=== PATIENT | female | born 2000 | race Two or more races ===

== ENCOUNTER 2021-12-12 07:25 | Outpatient (REF) | payer OTHER, SELFPAY ==
[2021-12-12 11:12] LABS: MANUAL DIFF FLAG NO
[2021-12-12 11:18] LABS: Basophils Percent Auto 0.8 % (0-2); Eosinophils Absolute Auto 0.2 X10*3/uL (0.0-0.4); Eosinophils Percent Auto 4.1 % (0-4); Hematocrit 39.1 % (37.0-47.0); Hemoglobin 12.6 g/dl (12.0-16.0); Imm Gran Abs Auto 0.02 X10*3/uL (0.00-0.03); Imm Gran Pct Auto 0.4 % (0.0-0.4); Mean Corpuscular HGB Conc 32.2 g/dl (31.0-35.0); Mean Corpuscular Hemoglobin 29.2 pg (27.0-33.0); Mean Corpuscular Volume 90.5 fL (80.0-98.0); Mean Platelet Volume 11.2 fL (9.4-12.3); Monocytes Absolute Auto 0.6 X10*3/uL (0.1-1.2); Monocytes Percent Auto 12.6 % (2-11); Neutrophils Percent Auto 41.1 % (45-73); Platelet Count 175 X10*3/uL (160-400); Red Blood Count 4.32 X10*6/uL (4.20-5.50); Red Cell Distribution Width 14.9 % (11.0-16.0); White Blood Count 4.9 X10*3/uL (4.8-10.8)
[2021-12-12 11:52] LABS: TSH reflex Free T4 1.32 uIU/mL (0.32-4.0)
[2021-12-12 11:57] LABS: Alanine Aminotransferase 19 U/L (0-31); Albumin Level 3.9 g/dL (3.5-5.0); Alkaline Phosphatase 76 U/L (39-117); Anion Gap 12 (12-20); Aspartate Amino Transferase 21 U/L (5-31); Bilirubin Total 1.2 mg/dL (0.0-1.0); Blood Urea Nitrogen 9 mg/dL (9-16); Carbon Dioxide 26 mmol/L (22-29); Chloride 106 mmol/L (96-108); Cholesterol 174 mg/dL; Estimated Glomerular Filt Rate > 60; Glucose Fasting 93 mg/dL (60-99); HDL Cholesterol 65 mg/dL; LDL Cholesterol Calculated 100 mg/dl; Potassium 3.8 mmol/L (3.3-5.1); Sodium 140 mmol/L (135-145); Total Protein 6.9 g/dL (6.5-8.0); Triglycerides 47 mg/dL
== END 2021-12-12 07:26 | disposition home or self-care (01) ==
LOC: HO.HMGCLDS 07:25
PROVIDERS: PCP Nurse Practitioner Family; Visit Provider Nurse Practitioner Family
DX: Z00.00 Encounter for general adult medical examination without abnormal findings (principal)
CPT/HCPCS: 36415; 80053; 80061; 84443; 85025

== ENCOUNTER 2022-01-02 10:00 | Outpatient (RCR) | payer OTHER, SELFPAY ==
--- NOTE | 2021-11-22 08:53 | MHC.PT.EP ---
[facility] [place] Office [place] Office [place] Office [address] Naseem Gabriel [address] [phone] F: [phone] F: [phone] F: [phone] F: [phone] Physical Therapy Plan of Care Date of Evaluation: Date of Surgery: Diagnosis: Unspecified L ankle sprain Assessment: Pt is a 21 y/o active female referred to Pt for eval and treat of L ankle sprain who presents with signs and Sx consistent with chronic L ankle sprain with instability resulting in decreased tolerance for jogging, running, marching, performing stairs, standing for increased duration, as well as performing her requiar fitness activities secondary to decreased L ankle strength, L ankle inversion hyper mobility, L ankle dorsiflexion hypomobility, TTP of lateral ankle, decreased balance, and pain with increased weight bearing activities. Pt is deemed an appropriate candidate to receive skilled PT in order to address her physical limitations to improve her functional ability. Frequency and Duration: The patient will be seen 2 x / wk x 5 wks. Short Term Goals: Initiate home program for ankle stability. Improve baseline pain with activity to < 3/10; initial; 5/10. 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 Pt will be able to run/ jog for her work requirements without difficulty; initial: moderate difficulty. Pt will be able to tolerate performing stairs without difficulty; initial: moderate difficulty. Improve L ankle EV MMT by at least 1/2 MMT grade; initial 4-/5 with mild/ moderate pain. Treatment Plan: Modalities to reduce pain, spasms and effusion. Manual therapy to restore motion and function. Therapeutic exercise to improve strength and flexibility. Neuromuscular re-education for posture and balance. Therapeutic activities to return to functional activities of daily living. Electronically signed by: Antony Laura PT. Please sign and return to therapist. Thank you for your referral.
--- NOTE | 2022-01-02 17:11 | MHC.PT.DC ---
[facility] [place] Office [place] Office [place] Office [address] Naseem Gabriel [address] [phone] F: [phone] F: [phone] F: [phone] F: [phone] Physical Therapy Discharge Report Diagnosis: Unspecified L ankle sprain Date of Surgery: Date of Evaluation: 11/14/21 Date of Discharge: 01/02/22 Treatments to Date: 12 Cancellations to Date: No Shows to Date: Discharge Status: Achieved Goals Improved Function Independent with HEP Discharge Summary: Temo has been an ideal participant in her therapy with good self program compliance. We are in agreement with DC today as she is managed of her Sx, met her therapeutic goals, and is I with her home program. Electronically signed by: Antony Laura PT Please sign and return to therapist. Thank you for your referral.
== END 2022-01-02 17:11 | disposition home or self-care (01) ==
LOC: HO.PTCHIC 10:00
PROVIDERS: PCP Nurse Practitioner Family; Visit Provider Nurse Practitioner Family
DX: S93.402A Sprain of unspecified ligament of left ankle, initial encounter (principal)
CPT/HCPCS: 97110; 97112; 97161; 97530

== ENCOUNTER 2022-03-20 12:49 | Outpatient (REF) | payer OTHER, SELFPAY ==
[2022-03-20 16:08] LABS: CT PCR NOT DETECTED (Not Detect.); NG PCR NOT DETECTED (Not Detect.)
== END 2022-03-20 12:50 | disposition home or self-care (01) ==
LOC: HO.LAB 12:49
PROVIDERS: PCP Nurse Practitioner Family; Visit Provider Advanced Practice Midwife
DX: Z11.3 Encounter for screening for infections with a predominantly sexual mode of transmission (principal)
CPT/HCPCS: 0353U

== ENCOUNTER → 2022-05-29 15:17 | Outpatient (BNVA) | payer OTHER, SELFPAY | PROVIDERS: PCP Nurse Practitioner Family; Visit Provider Advanced Practice Midwife | DX: Z30.40 Encounter for surveillance of contraceptives, unspecified (principal) | CPT/HCPCS: 99212 ==

== ENCOUNTER 2022-10-23 08:55 | Outpatient (AMB) | payer OTHER, SELFPAY ==
--- NOTE | 2022-10-23 09:07 | A.OFFPC_ITS ---
Vital Signs 10/23/22 09:08 Height 5 ft 2 in Weight 138 lb 2 oz BMI 25.3 BP 98/56 L Blood Pressure Location Lt brachial Position Sitting Pulse 63 Pulse Source Pulse Oximeter Pulse Oximetry (%) 100 Oxygen Delivery Method Room Air Intake Visit Reasons: Annual PE Allergies Penicillins Allergy (Verified 10/23/22 09:10) Rash Medication List - Last Reconciled 10/23/22 by Anand Travis, NEEDLE PUNCH MACHINE OPERATOR-BC norelgestromin-ethin.estradiol 150-35 mcg/24 hr (Xulane) 1 patch transdermal Q7D 3 weeks Tobacco use date assessed: 10/23/22 Dental Screening Dental Screen Date: 10/23/22 Did you have a dental visit in the last 12 months?: Yes Did you have a dental problem in the last 6 months where you did not have access to dental care?: No Was dental information given to patient?: Patient has dentist HPI Annual PE HPI Details Pt is here for a PE. Will order labs. Has a patient liaison. Pt's blood pressure is low, though this is typical for her. She denies any dizziness. 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 Juanito Jauregui, Yaneth Triana, Bala Duong and colleagues, with an educational baljit from [employer]. Review of Systems Const Denies chills and Denies fever(s) Eyes Denies blurry vision ENT Denies vertigo, Denies dizziness and Denies sore throat Card Denies chest pain at rest, Denies chest pain with activity, Denies diaphoresis, Denies dyspnea and Denies dyspnea on exertion Resp Denies cough, Denies dyspnea, Denies dyspnea on exertion and Denies wheezing GI Denies abdominal pain, Denies melena, Denies hematochezia, Denies constipation, Denies diarrhea and Denies loose stools Denies hematuria Musc Denies numbness and Denies tingling Skin/Breast Denies lesions Neuro Denies vertigo, Denies dizziness, Denies numbness and Denies tingling Psych Denies anxiety, Denies depression, Denies homicidal ideation, Denies suicidal ideation and Denies other (substance abuse) Aller/Immun Denies wheezing Physical exam (Primary Care) Vital Signs: Last Vital Signs Pulse 63 10/23/22 09:08 BP 98/56 L 10/23/22 09:08 Pulse Ox 100 10/23/22 09:08 Oxygen Delivery Method Room Air 10/23/22 09:08 BMI result Body Mass Index 25.3 Tobacco/Smoking Status: Tobacco use Status Tobacco use date assessed 10/23/22 10/23/22 09:12 Patient Tobacco Use Status Never used Tobacco 10/23/22 09:07 e-Cigarette/Vaping Use Never Used 10/23/22 09:07 Thrive Assessment: Date of Thrive Assessment Date Thrive assessed 10/21/21 10/23/22 09:07 Const General: cooperative Nutritional Appearance: well nourished Orientation/consciousness: patient oriented x3 HENMT Head: Yes normal to inspection, Yes normocephalic and Yes atraumatic Ears: TM's normal bilaterally Eyes General: appearance normal, both eyes and all related structures Alignment and Position: alignment normal and position normal Neck Neck: Yes normal visual inspection and Yes no lymphadenopathy Thyroid: Thyroid normal Resp Effort & Inspection: normal respiratory effort Auscultation: clear to auscultation bilaterally Cardio Rate: regular rate Rhythm: regular rhythm Heart sounds: S1 normal heart sound present, S2 normal heart sound present and no murmurs GI Palpation (GI): Soft to palpation and nontender Auscultation: normal bowel sounds Skin Rashes: no rashes Neuro General: patient oriented x3, moves all extremities, no focal motor deficits and deep tendon reflexes 2+ bilaterally Romberg Test: Negative Psych Appearance: grossly normal Mental Status: mental status grossly normal Speech and movement: Normal speech and movement present Affect: normal affect Attitude: cooperative Thought process: Normal thought process present Thought content: Normal thought content present Insight: Good insight present (Psych) Judgement: Good judgement present (Psych) Assessment and Plan Assessment & Plan (1) Physical exam: Code(s): Z00.00 - Encounter for general adult medical examination without abnormal findings Plan: Labs ordered Plan The patient agreed to the use of a medical logistics specialist for this encounter. Scribed for MIKE Davis by Caty Jack medical logistics specialist, on 10/23/2022 at 09:20 EST. Orders: Orders Comprehensive [place]. Panel Fast Today Z00.00 - Encounter for general adult medical examination without abnormal findings Lipid Panel Today Z00.00 - Encounter for general adult medical examination witho ut abnormal findings TSH reflex Free T4 Today Z00.00 - Encounter for general adult medical examination without abnormal findings Complete Blood Count Auto Diff Today Z00.00 - Encounter for general adult medical examination without abnormal findings UA CC w/rflx Micro + Cult Today Z00.00 - Encounter for general adult medical examination without abnormal findings Coding Level of Care Code Est Pt Prev Care 18-39y(15170) Diagnoses Physical exam Z00.00
[2022-10-23 09:08] VITALS: BP 98/56; PULSE 63; O2SAT 100; BMI 25.3
== END 2022-10-23 09:27 | disposition home or self-care (01) ==
PROVIDERS: Visit Provider Nurse Practitioner Family
DX: Z00.00 Encounter for general adult medical examination without abnormal findings (principal)
CPT/HCPCS: 99395

== ENCOUNTER 2023-04-09 08:08 | Outpatient (AMB) | payer OTHER, SELFPAY ==
[2023-04-09 08:40] VITALS: BP 112/68; PULSE 86; TEMP 36.8; O2SAT 97; BMI 24.0
--- NOTE | 2023-04-09 08:40 | AM.OFFWIN_ITS ---
Intake Vital Signs 04/09/23 08:40 Height 5 ft 2 in Weight 131 lb BMI 24.0 BP 112/68 Blood Pressure Location Lt brachial Position Sitting Pulse 86 Pulse Source Pulse Oximeter Temp 98.3 F Temp Source Temporal Artery Scan Pulse Oximetry (%) 97 Oxygen Delivery Method Room Air Intake Visit Reasons: EP sore throat ear/headache [id number] Intake Note: pt is here today for sore throat ear headache started thursday Patient Tobacco Use Status: Never used Tobacco Allergies Penicillins Allergy (Verified 04/09/23 08:41) Rash Medication List - Last Reconciled 04/09/23 by Doris Argueta NP norelgestromin-ethin.estradiol 150-35 mcg/24 hr (Xulane) 1 patch transdermal Q7D 3 weeks Do you need a note to return to daycare/school/sports/work: No HPI HPI Comments History of Present Illness Details 22 y/o female presents to walk in clinic with c/o sorethroat, CARABALLO and ear pain since Thursday. 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 Current occupational exposures/hazards: Yes Sexual orientation: Straight/Heterosexual Gender identity: Female Cognitive needs: No Hearing needs: No Vision needs: No Female Reproductive History Menstrual Age of Menarche: 10 Review of Systems Const All systems reviewed & are unremarkable except as noted in HPI and below Physical Exam Vital Signs: Last Vital Signs Temp 98.3 F 04/09/23 08:40 Pulse 86 04/09/23 08:40 BP 112/68 04/09/23 08:40 Pulse Ox 97 04/09/23 08:40 Oxygen Delivery Method Room Air 04/09/23 08:40 BMI result Body Mass Index 24.0 Const General: comfortable HEENT Head: Yes normocephalic Ears: external ears normal and TM's normal bilaterally General nose exam: No nasal discharge present and Abnormal mucous membranes and turbinates present boggy and erythematous Face and sinus: Yes sinuses nontender Mouth: moist mucous membranes Throat: Yes posterior oropharynx normal Resp Effort & Inspection: normal respiratory effort Auscultation: clear to auscultation bilaterally Cardio Rate: regular rate Rhythm: regular rhythm Results AMB Rapid Strep AMB Rapid Strep Negative Last Edit by Ulisses Payne CMA on 04/09/23 08 :59 Results Reviewed Results Reviewed: Laboratory Last Values Strep Scn Rapid Clinic Negative 04/09/23 08:56 Assessment & Plan Assessment & Plan (1) Acute pharyngitis: Code(s): J02.9 - Acute pharyngitis, unspecified Qualifiers: Pharyngitis/tonsillitis etiology: other specified organisms Qualified Code(s): J02.8 - Acute pharyngitis due to other specified organisms Plan: - Rest, - OTC cold remedies - SArs Orders: Orders AMB Rapid Strep Screen Today Z13.9 - Encounter for screening, unspecified SARS-CoV2/FLU/RSV Today J02.8 - Acute pharyngitis due to other specified organisms Medications: New acetaminophen 1,000 mg (2 x 500 mg) PO Q6H PRN 30 caps 0RF fever R51.9 - Headache, unspecified Coding Level of Care Code Est Pt Level 2 (38235) Diagnoses Acute pharyngitis due to other specified organisms J02.8 Pharyngitis/tonsillitis etiology: other specified organisms Time Spent (min) 15
== END 2023-04-09 11:10 | disposition home or self-care (01) ==
PROVIDERS: PCP Nurse Practitioner Family; Visit Provider Nurse Practitioner Family
DX: J02.9 Acute pharyngitis, unspecified (principal)
CPT/HCPCS: 87880; 99212

== ENCOUNTER 2023-04-09 11:46 | Outpatient (REF) | payer OTHER, SELFPAY ==
[2023-04-09 13:53] LABS: Influenza A PCR NEGATIVE (Negative); Influenza B PCR NEGATIVE (Negative); Resp Syncy Virus RNA Qual PCR NEGATIVE (Negative); SARS COV2 PCR INHOUSE NEGATIVE (Negative)
== END 2023-04-09 11:47 | disposition home or self-care (01) ==
LOC: HO.LNP 11:46
PROVIDERS: Visit Provider Nurse Practitioner Family
DX: Z11.52 Encounter for screening for COVID-19 (principal); Z20.822 Contact with and (suspected) exposure to COVID-19; J02.9 Acute pharyngitis, unspecified
CPT/HCPCS: 0241U

== ENCOUNTER 2023-05-08 09:51 | Outpatient (AMB) | payer OTHER, SELFPAY ==
[2023-05-08 09:57] VITALS: BP 98/58; BMI 23.8
--- NOTE | 2023-05-08 09:57 | A.OFFVIS_ITS ---
Intake Vital Signs 05/08/23 09:57 Height 5 ft 2 in Weight 130 lb 1.164 oz BMI 23.8 BP 98/58 L Intake Visit Reasons: [employer] annual exam Intake Note: no concerns Wire Fence Builder Required: No Information Interpreted: non-clinical & clinical Drip Pumper: Drip Pumper Present (Mariah CASTILLO) Accompanied by: Self / Same As Patient Allergies Penicillins Allergy (Verified 05/08/23 09:59) Rash Is last menstrual period known: Yes Last menstrual period: 04/10/23 HPI HPI Comments History of Present Illness Details She is a premenopausal woman presenting for annual examination. Doing well with no concerns. She tries to eat healthy and stays active with exercise. Currently is not sexually active. She denies vaginal itching and irritation. STI screening offered; she accepts. Denies family history of breast, ovarian or colon cancer. No Pap on file. Doing well on her Xulane patch and needs a refill. She denies any contraindications to control such as: migraines with aura, history of DVT or pulmonary emboli, high blood pressure, liver disease, thrombolic disorders, Lupus, +EMMIE, breast cancer, or smoking. 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 Current occupational exposures/hazards: Yes Sexual orientation: Straight/Heterosexual Gender identity: Female Cognitive needs: No Hearing needs: No Vision needs: No Female Reproductive History Menstrual Age of Menarche: 10 Date of last menstrual period: 04/10/23 control method: patch Total pregnancies: 0 Review of Systems Const All systems reviewed & are unremarkable except as noted in HPI and below Reports as per HPI Eyes Reports no additional complaints ENT Reports no additional complaints Card Reports no additional complaints Resp Reports no additional complaints GI Reports as per HPI and Reports no additional complaints Reports as per HPI Musc Reports no additional complaints Skin/Breast Reports as per HPI Neuro Reports no additional complaints Psych Reports no additional complaints Endo Reports no additional complaints Gómez/Lymph Reports no additional complaints Aller/Immun Reports no additional complaints Physical Exam Vital Signs: Last Vital Signs BP 98/58 L 05/08/23 09:57 BMI result Body Mass Index 23.8 Const General: cooperative, healthy appearing, no acute distress, well developed and alert Orientation/consciousness: patient oriented x3 HEENT Head: Yes normal to inspection Eyes General: appearance normal, both eyes and all related structures Neck Neck: Yes normal visual inspection Thyroid: Thyroid normal Chest Chest palpation & inspection: normal inspection of the chest and other (no puckering, dimpling, peau de orange, retraction, discharge, masses) Breast/axilla inspection: normal inspection of the breasts Breast/axilla palpation: normal palpation of the breasts Resp Effort & Inspection: normal respiratory effort GI Inspection: Yes normal to inspection Palpation (GI): Soft to palpation Rectal Exam - Female: deferred General: Yes bladder normal to palpation External Female Exam: normal external appearance and normal appearance of the urethra Speculum Exam - Vagina: normal appearance of the vagina, normal palpation, normal vaginal discharge and vaginal bleeding Speculum Exam - Cervix: normal appearance of the cervix and normal palpation Bimanual exam- vagina & uterus: normal bimanual exam, normal palpation, uterine size normal, bladder normal to palpation, normal palpation and non-tender Bimanual Exam- Adnexa, other: no masses OB/external & speculum: vaginal bleeding Skin General skin exam: no rashes or lesions noted Rashes: no rashes Neuro General: patient oriented x3 Cognition (Neuro): normal cognition Extrem General: Yes normal to inspection Psych Attitude: cooperative Thought process: Normal thought process present Assessment & Plan Assessment & Plan (1) Encounter for well woman exam with routine gynecological exam: Code(s): Z01.419 - Encounter for gynecological examination (general) (routine) without abnormal findings Plan Discussed: Current recommendations for pap smears per ASCCP guidelines. Breast awareness and periodic breast exams. Maintain a healthy lifestyle including a well balanced diet and routine exercise. Use condoms for STI and prevention. control hormone use warnings: go to ER if and loss of vision, blindness, severe headache, chest pain or difficulty breathing, severe abdominal pain, or any pain or swelling in an extremity. Patient verbalizes understanding and agrees to the plan of care. She was given opportunity to ask questions and all questions were answered to the best of my ability. RTO in one year for annual director of perioperative services examination. This note is constructed using voice recognition software. While every effort has been made to ensure accuracy, salesperson fashion accessories errors may have been included. Orders: Orders CT NG by PCR Today Z01.419 - Encounter for gynecological examination (general) (routine) without abnormal findings Hepatitis C Antibody Reflex Today Z20.2 - Contact with and (suspected) exposure to infections with a predominantly sexual mode of transmission Hepatitis B Core Antibody Today Z20.2 - Contact with and (suspected) exposure to infections with a predominantly sexual mode of transmission Pap Smear Today Z01.419 - Encounter for gynecological examination (general) (routine) without abnormal findings HIV Ab/Ag Today Z20.2 - Contact with and (suspected) exposure to infections with a predominantly sexual mode of transmission Syphilis Screen Today Z20.2 - Contact with and (suspected) exposure to infections with a predominantly sexual mode of transmission Medications: Refilled norelgestromin-ethin.estradiol 150-35 mcg/24 hr (Xulane) Start the patch in the first five days of the menstrual cycle, wear one patch a week x3 weeks, the last week is patch free. 1 patch transdermal Q7D 9 ea 4RF 3 weeks Coding Level of Care Code Est Pt Prev Care 18-39y(15134) Diagnoses Encounter for well woman exam with routine gynecological exam Z01.419
== END 2023-05-08 10:36 | disposition home or self-care (01) ==
PROVIDERS: PCP Nurse Practitioner Family; Visit Provider Advanced Practice Midwife
DX: Z01.419 Encounter for gynecological examination (general) (routine) without abnormal findings (principal)
CPT/HCPCS: 99395

== ENCOUNTER 2023-05-08 09:51 | Outpatient (REF) | payer OTHER, SELFPAY ==
[2023-05-09 05:39] LABS: CT PCR NOT DETECTED (Not Detect.); NG PCR NOT DETECTED (Not Detect.)
== END 2023-05-08 09:52 | disposition home or self-care (01) ==
LOC: HO.LNP 09:51
PROVIDERS: PCP Nurse Practitioner Family; Visit Provider Advanced Practice Midwife
DX: Z01.419 Encounter for gynecological examination (general) (routine) without abnormal findings (principal); Z20.2 Contact with and (suspected) exposure to infections with a predominantly sexual mode of transmission
CPT/HCPCS: 0353U; 88142

== ENCOUNTER 2023-11-03 10:32 | Outpatient (REF) | payer OTHER, SELFPAY ==
[2023-11-04 04:45] LABS: Syphilis Screen Nonreactive (Nonreactive)
[2023-11-04 05:26] LABS: HBc Num1 0.11 S/CO (0.00-0.79); HIV AB/AG Nonreactive (Nonreactive); HIV Num 1 0.05 S/CO (0.00-0.99); Hepatitis B Core Antibody Nonreactive (Nonreactive); ~HepC Num1 0.11 S/CO (0.00-0.79); ~Hepatitis C Antibody Nonreactive (Nonreactive)
== END 2023-11-03 10:33 | disposition home or self-care (01) ==
LOC: HO.HMGCLDS 10:32
PROVIDERS: PCP Nurse Practitioner Family; Visit Provider Advanced Practice Midwife
DX: Z20.2 Contact with and (suspected) exposure to infections with a predominantly sexual mode of transmission (principal)
CPT/HCPCS: 36415; 86704; 86780; 86803; 87389

== ENCOUNTER 2023-11-03 14:59 | Outpatient (AMB) | payer OTHER, SELFPAY ==
[2023-11-03 15:04] VITALS: BP 104/62; PULSE 72; O2SAT 97; BMI 25.2
--- NOTE | 2023-11-03 15:04 | MHC.PC.OV ---
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 Required: No Accompanied by: Self / Same As Patient Allergies Penicillins Allergy (Verified 11/03/23 15:23) Rash Medication List - Last Reconciled 11/03/23 by MIKE Pierre acetaminophen 1,000 mg (2 x 500 mg) PO Q6H PRN norelgestromin-ethin.estradiol 150-35 mcg/24 hr (Xulane) 1 patch transdermal Q7D 3 weeks Tobacco use date assessed: 11/03/23 Dental Screening Dental Screen Date: 11/03/23 Did you have a dental visit in the last 12 months?: Yes Did you have a dental problem in the last 6 months where you did not have access to dental care?: No Was dental information given to patient?: Patient has dentist HPI Annual PE HPI Details Pt is here for a PE. Will order labs. Has a obstetrics gyn. 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 1. Little interest or pleasure in doing things: not at all 2. Feeling down, depressed, or hopeless: not at all 3. Trouble falling or staying asleep, or sleeping too much: not at all 4. Feeling tired or having little energy: not at all 5. Poor appetite or overeating: not at all 6. Feeling bad about yourself - or that you are a failure or have let yourself or your family down: not at all 7. Trouble concentrating on things, such as reading the newspaper or watching television: not at all 8. Moving or speaking so slowly that other people could have noticed. Or the opposite - being so fidgety or restless that you have been moving around a lot more than usual: not at all 9. Thoughts that you would be better off or of hurting yourself in some way: not at all Total score: 0 Depression Screening Interpretation: Negative Depression Screening Done: Yes 59419 - PHQ-9 Billing: Yes Source: Developed by Drs. Juanito Jauregui, Yaneth Triana, Bala Duong and colleagues, with an educational baljit from [employer] Thrive Questionnaire Date Thrive assessed: 11/03/23 I am a: Patient What is your living situation today?: I have a steady place to live Within the past 12 months, did the food you bought not last and you didn't have the money to get more?: Never true Within the past 12 months, did you worry whether your food would run out before you got money to buy more?: Never true Do you have trouble paying for medicines?: No Do you have trouble getting transportation to medical appointments?: No Do you have trouble paying your heating and electricity bill?: No Do you have trouble taking care of your child, family member or friend?: No Do you have trouble with day-to-day activities such as bathing, preparing meals, shopping, managing finances, etc.?: No Are you currently unemployed and looking for a job?: No Are you interested in more education?: No Please select the resources that you would like help with: None Currently or been in a relationship where the following occur: No concerns reported THRIVE Score: 0 AUDIT C Alcohol Use Questionnaire (AUDIT-C) 1. How often do you have a drink containing alcohol?: Never 2. How many drinks containing alcohol do you have on a typical day when you are drinking?: 1 or 2 3. How often do you have six or more drinks on one occasion?: Never Total Score: 0 Score Reviewed/Action Taken: Yes DAGOBERTO-7 AMB Questionnaire DAGOBERTO-7 Date DAGOBERTO - 7 assessed: 11/03/23 Feeling nervous, anxious, or on edge: 1 = Several days Not being able to stop or control worryin = Several days Worrying too much about different things: 0 = Not at all Trouble relaxin = Several days Being so restless that it is hard to sit still: 0 = Not at all Becoming easily annoyed or irritable: 1 = Several days Feeling afraid as if something awful might happen: 0 = Not at all Total DAGOBERTO-7 score (0-4 normal; 5-9 mild; 10-14 moderate; 15-21 severe): 4 Source: Developed by Drs. Juanito Jauregui, Yaneth Triana, Bala Duong and colleagues, with an educational baljit from [employer] DAGOBERTO-7 Assessment Billing DAGOBERTO-7 Assessment Tool: DAGOBERTO-7 Assessment 51778 Review of Systems Const Denies chills and Denies fever(s) Eyes Denies blurry vision ENT Denies vertigo, Denies dizziness and Denies sore throat Card Denies chest pain at rest, Denies chest pain with activity, Denies diaphoresis, Denies dyspnea and Denies dyspnea on exertion Resp Denies cough, Denies dyspnea, Denies dyspnea on exertion and Denies wheezing GI Denies abdominal pain, Denies melena, Denies hematochezia, Denies constipation, Denies diarrhea and Denies loose stools Denies hematuria Musc Denies numbness and Denies tingling Skin/Breast Denies lesions Neuro Denies vertigo, Denies dizziness, Denies numbness and Denies tingling Psych Denies anxiety, Denies depression, Denies homicidal ideation, Denies suicidal ideation and Denies other (substance abuse) Aller/Immun Denies wheezing Physical exam (Primary Care) Vital Signs: Last Vital Signs Pulse 72 11/03/23 15:04 BP 104/62 11/03/23 15:04 Pulse Ox 97 11/03/23 15:04 BMI result Body Mass Index 25.2 Tobacco/Smoking Status: Tobacco use Status Tobacco use date assessed 11/03/23 11/03/23 15:06 Patient Tobacco Use Status Never used Tobacco 11/03/23 15:06 e-Cigarette/Vaping Use Never Used 11/03/23 15:06 PHQ-9: PHQ-9 Score PHQ-9: Total score 0 11/03/23 15:06 Depression Screening Interpretation: Negative Thrive Assessment: Date of Thrive Assessment Date Thrive assessed 11/03/23 11/03/23 15:06 Currently or been in a relationship where the following occur: No concerns reported Const General: cooperative Nutritional Appearance: well nourished Orientation/consciousness: patient oriented x3 HENMT Head: Yes normal to inspection, Yes normocephalic and Yes atraumatic Ears: TM's normal bilaterally Eyes General: appearance normal, both eyes and all related structures Alignment and Position: alignment normal and position normal Neck Neck: Yes normal visual inspection, Yes no lymphadenopathy and Yes supple Resp Effort & Inspection: normal respiratory effort Auscultation: clear to auscultation bilaterally Cardio Rate: regular rate Rhythm: regular rhythm Heart sounds: S1 normal heart sound present, S2 normal heart sound present and no murmurs GI Palpation (GI): Soft to palpation and nontender Auscultation: normal bowel sounds Skin Rashes: no rashes Neuro General: patient oriented x3, moves all extremities, no focal motor deficits and deep tendon reflexes 2+ bilaterally Romberg Test: Negative Psych Appearance: grossly normal Mental Status: mental status grossly normal Speech and movement: Normal speech and movement present Affect: normal affect Attitude: cooperative Thought process: Normal thought process present Thought content: Normal thought content present Insight: Good insight present (Psych) Judgement: Good judgement present (Psych) Assessment and Plan Assessment & Plan (1) Physical exam: Code(s): Z.00 - Encounter for general adult medical examination without abnormal findings Plan The patient agreed to the use of a medical staff services coordinator for this encounter. Scribed for MIKE Davis by Caty Jack medical staff services coordinator, on 11/03/2023 at 15:25 EST. Orders: Orders Complete Blood Count Auto Diff Today Z00.00 - Encounter for general adult medical examination without abnormal findings Comprehensive [place]. Panel Fast Today Z00.00 - Encounter for general adult medical examination without abnormal findings TSH reflex Free T4 Today Z00.00 - Encounter for general adult medical examination without abnormal findings UA CC w/rflx Micro + Cult Today Z00.00 - Encounter for general adult medical examination without abnormal findings Lipid Panel Today Z00.00 - Encounter for general adult medical examination without abnormal findings Coding Level of Care Code Est Pt Prev Care 18-39y(44420) Diagnoses Physical exam Z00.00 Additional Codes DAGOBERTO-7 Assessment Billing - DAGOBERTO-7 Assessment Tool: DAGOBERTO-7 Assessment 87582 ([id number])
== END 2023-11-03 16:16 | disposition home or self-care (01) ==
PROVIDERS: PCP Nurse Practitioner Family; Visit Provider Nurse Practitioner Family
DX: Z00.00 Encounter for general adult medical examination without abnormal findings (principal)
CPT/HCPCS: 99395

== ENCOUNTER 2024-07-01 08:00 | Outpatient (REF) | payer OTHER, SELFPAY ==
--- OUTSIDE RECORDS SUMMARY | 2024-07-01 08:03 | XMS_ITS | Continuity of Care Document ---
Author Name [facility] Organization [facility] Care Team Providers Care Back Up Scan Coordinator Name Role Phone [facility] Unavailable Unavailable Medications Combined list of outpatient medications from Department of Defense and Veterans Affairs facilities.Medications provided include 1) outpatient medications from the last 15 months, and 2) patient-reported medications. Medication Details Route Status Patient Instructions Prescription Expires Prescription Number Last Dispense Date Ordering Provider Order Date Order Qty Source norgestimat e-ethinyl estradiol 0.25 mg-35 mcg oral tablet norgesti mate-eth inyl estradio l 0.25 mg-35 mcg oral tablet Start Date: 10/11/19 Stop Date: 06/19/22 Status: Disconti nualexandra Repeat number: 1 Discont inued 06/19/20222022 No Facilit y Access ZAFEMY (norelgestr omin/ethiny l estradiol), 150-35/24H, PATCH TDWK, TRANSDERM, AMNEAL PHARMACE, 3 ea. BOX Cancele d 4 [id number] : 2023 0 Pharmac y Data Transac tion Service Facilit y ZAFEMY (norelgestr omin/ethiny l estradiol), 150-35/24H, PATCH TDWK, TRANSDERM, AMNEAL PHARMACE, 3 ea. BOX Active [id number] 4 2023 3 Pharmac y Data Transac tion Service Facilit y ZAFEMY (norelgestr omin/ethiny l estradiol), 150-35/24H, PATCH TDWK, TRANSDERM, AMNEAL PHARMACE, 3 ea. BOX Cancele d 4 [id number] : 2023 0 Pharmac y Data Transac tion Service Facilit y ZAFEMY (norelgestr omin/ethiny l estradiol), 150-35/24H, PATCH TDWK, TRANSDERM, AMNEAL PHARMACE, 3 ea. BOX Active [id number] 4 2023 9 Pharmac y Data Transac tion Service Facilit y Zafemy 150 mcg-35 mcg/24 hr transdermal film, extended release 1 patch(es ), TransDer mal, every week, 0 total refill(s ), Maintena nce TransD ermal (apply on the skin) Ordered 2022 0035C-N [facility] [place] Allergies, Adverse Reactions, Alerts Combined list of allergies from Department of Defense and Veterans Affairs facilities. It does not include entries that were removed or entered in error. Substance Category Reaction Severity Reaction type Status Date Reported Comments Source PENICILLINS Drug allergy (disorder) Redness Of Eye active 8 [facility] penicillins Propensity to adverse reactions to substance Redness Of Eye Active Unknown Organizati on Immunizations Combined list of available immunizations from the Department of Defense and Veterans Affairs facilities. Immunization Series Date Given Administered By Site Reaction Lot Number CVX Code Drug Trucker Hand Status Comments Source influenza, injectable, quadrivalent, preservative free 2020 TERRY, () Not Given influenza , injectabl e, quadrival ent, preservat felicia free DoD COVID-19, mRNA, LNP-S, PF, 30 mcg/0.3 mL dose [facility] [place] ([facility] Not Given COVID-19, mRNA, LNP-S, PF, 30 mcg/0.3 mL dose DoD COVID-19, mRNA, LNP-S, PF, 30 mcg/0.3 mL dose [facility] [employer] [place] ([place]FR) Not Given COVID-19, mRNA, LNP-S, PF, 30 mcg/0.3 mL dose DoD Influenza, injectable, quadrivalent, preservative free 0 2019 [id number] 150 Seqirus (SEQ) complet ed Influenza , injectabl e, quadrival ent, preservat felicia free DoD typhoid vaccine, parenteral 2019 [id number] M 41 sanofi pasteur complet ed typhoid vaccine, parentera l 05/30/19 Given Ambulat ory Pharmac y typhoid vaccine, parenteral 2019 [id number] M 41 sanofi pasteur complet ed typhoid vaccine, parentera l 05/30/19 Given Ambulat ory Pharmac y typhoid vaccine, parenteral, other than acetone-kille d, dried 1 2019 [id number] M 41 Sanofi Pasteur (PMC) complet ed typhoid vaccine, parentera l, other than acetone-k illed, dried DoD influenza, injectable, quadrivalent- pf 2018 [id number] 150 Seqirus complet ed influenza , injectabl e, quadrival ent-pf 02/18/19 Given Ambulat ory Pharmac y influenza, injectable, quadrivalent- pf 2018 [id number] 150 Seqirus complet ed influenza , injectabl e, quadrival ent-pf 02/18/19 Given Ambulat ory Pharmac y Influenza, injectable, quadrivalent, preservative free 0 2018 [id number] 988 150 Seqirus (SEQ) complet ed Influenza , injectabl e, quadrival ent, preservat felicia free DoD influenza, injectable, quadrivalent- pf 2017 [id number] 1A 150 Seqirus complet ed influenza , injectabl e, quadrival ent-pf 12/07/17 Given Ambulat ory Pharmac y influenza, injectable, quadrivalent- pf 2017 [id number] 1A 150 Seqirus complet ed influenza , injectabl e, quadrival ent-pf 12/07/17 Given Ambulat ory Pharmac y Influenza, injectable, quadrivalent, preservative free 0 2017 [id number] 1A 150 Seqirus (SEQ) complet ed Influenza , injectabl e, quadrival ent, preservat felicia free DoD hepatitis A and hepatitis B vaccine 0 2017 104 () Not Given hepatitis A and hepatitis B vaccine [facility] Influenza, inj, MDCK, quadrivalent- pf 2016 [id number] Seqirus complet ed Influenza , inj, MDCK, quadrival ent-pf 01/08/17 Given Ambulat ory Pharmac y Influenza, inj, MDCK, quadrivalent- pf 2016 Randolph portillo Arm [id number] 171 Seqirus complet ed Influenza , inj, MDCK, quadrival ent-pf 01/08/17 Given Ambulat ory Pharmac y Influenza, injectable, Madin Babita Canine Kidney, preservative free, quadrivalent 1 2016 MARY DOMINGUEZ [id number] 171 Seqirus (SEQ) complet ed Influenza , injectabl e, Madin Babita Canine Kidney, preservat felicia free, quadrival ent DoD hepatitis A vaccine, adult dosage 0 2016 52 () Not Given hepatitis A vaccine, adult dosage DoD poliovirus vaccine, inactivated 2016 [id number] 10 sanofi pasteur complet ed polioviru s vaccine, inactivat ed 12/11/16 Given Ambulat ory Pharmac y poliovirus vaccine, inactivated 2016 zFelipe ht Thigh [id number] 10 sanofi pasteur complet ed polioviru s vaccine, inactivat ed 12/11/16 Given Ambulat ory Pharmac y poliovirus vaccine, inactivated 1 2016 CALLY BERMUDEZ [id number] 10 Sanofi Pasteur (PMC) complet ed polioviru s vaccine, inactivat ed DoD measles and rubella virus vaccine 0 2016 04 () Not Given measles and rubella virus vaccine DoD hepatitis B vaccine, pediatric or pediatric/ado lescent dosage 0 2016 08 () Not Given hepatitis B vaccine, pediatric or pediatric /adolesce nt dosage DoD varicella virus vaccine 0 2016 21 () Not Given varicella virus vaccine DoD measles and rubella virus vaccine 0 2016 04 () Not Given measles and rubella virus vaccine DoD varicella virus vaccine 0 2016 21 () Not Given varicella virus vaccine DoD adenovirus vaccine, live 2016 [id number] 0 143 Teva Pharmaceutica ls complet ed adenoviru s vaccine, live 10/16/16 Given Ambulat ory Pharmac y meningococcal oligosacchari de (MCV4O) 2016 [id number] 136 sanofi pasteur complet ed meningoco ccal oligosacc haride (MCV4O) 10/16/16 Given Ambulat ory Pharmac y tetanus, diphtheria, acellular pertu is 2016 [id number] 115 GlaxoSmithKli ne complet ed tetanus, diphtheri a, acellular pertussis 10/16/16 Given Ambulat ory Pharmac y adenovirus vaccine, live 2016 [id number] 0 143 Teva Pharmaceutica ls complet ed adenoviru s vaccine, live 10/16/16 Given Ambulat ory Pharmac y meningococcal oligosacchari de (MCV4O) 2016 zzDeann ht Arm [id number] 136 sanofi pasteur complet ed meningoco ccal oligosacc haride (MCV4O) 10/16/16 Given Ambulat ory Pharmac y tetanus, diphtheria, acellular pertu is 2016 zzLef t Arm [id number] 115 GlaxoSmithKli ne complet ed tetanus, diphtheri a, acellular pertussis 10/16/16 Given Ambulat ory Pharmac y tuberculin purified protein derivative 2016 zzLef t Arm [id number] 96 sanofi pasteur complet ed tuberculi n purified protein derivativ e 10/16/16 Given Ambulat ory Pharmac y tuberculin skin test; purified protein derivative solution, intradermal 1 2016 Unknown, Provider [id number] 96 Sanofi Pasteur (PMC) complet ed tuberculi n skin test; purified protein derivativ e solution, intraderm al DoD tetanus toxoid, reduced diphtheria toxoid, and acellular pertu is vaccine, adsorbed 1 2016 Unknown, Provider [id number] 115 SmithKline (SKB) complet ed tetanus toxoid, reduced diphtheri a toxoid, and acellular pertussis vaccine, adsorbed DoD meningococcal oligosacchari de (groups A, C, Y and W-135) diphtheria toxoid conjugate vaccine (MCV4O) 1 2016 Unknown, Provider [id number] 136 Sanofi Pasteur (PMC) complet ed meningoco ccal oligosacc haride (groups A, C, Y and W-135) diphtheri a toxoid conjugate vaccine (MCV4O) DoD Adenovirus, type 4 and type 7, live, oral 1 2016 Unknown, Provider [id number] [address] [facility] (BRR) complet ed Adenoviru s, type 4 and type 7, live, oral DoD Encounters Combined list of: 1) Encounters from Department of Veterans Affairs facilities going backup to the last 18 months, not all VA inpatient encounters are included; 2) Encounters from the Department of Defense facilities going backup to 280 months. Location Location Details Encounter Type Encounter Number Reason For Visit Attending Provider ADM Date DC Date Status Disposition Source [facility] Jeanie aquino([facility] Hearing Conservat ion) OUTPATIENT [id number] JOSE CARLOS HARRINGTON 10/14 Released w/o Limitations [facility] Juan polanco([facility] Hearing Conserv ation) [facility] Jeanie aquino([facility] Optometry Clinic) OUTPATIENT [id number] SUSANNA WIN 10/14 Released w/o Limitations [facility] Juan polanco([facility] D Optomet ry Clinic) [facility] n([facility] Recruit Medical Process) OUTPATIENT [id number] INITIAL VISIT FOR INLIA DEJESUS 10/17 Released w/o Limitations [facility] Juan polanco([facility] D Recruit Medical Process ) [facility] n([facility] Fourth BN BAS) OUTPATIENT [id number] Notes Entered by: HAYLEY YAO 24 Oct 2016 1016 ------- ------- ------- ------- -- O/QUANG JAMES 10/24 Released w/o Limitations [facility] Juan polanco([facility] D Fourth BN BAS) [facility] miles([facility] Fourth BN BAS) OUTPATIENT [id number] Notes Entered by: SAIDA DONAHUE 31 Oct 2016 0717 ------- ------- ------- ------- -- O/QUANG PARR 10/31 Released w/o Limitations [facility] Juan polanco([facility] D Fourth BN BAS) [facility] n([facility]) OUTPATIENT [id number] Notes Entered by: HAMLET WASHINGTON 04 Nov 2016 1321 ------- ------- ------- ------- -- O/HERIBERTO GRANADO 11/04 Released w/o Limitations [facility] Juan polanco([facility] D [facility]) [facility] n([facility] Fourth BN BAS) OUTPATIENT [id number] Notes Entered by: Addi ZHU 07 Nov 2016 1036 ------- ------- ------- ------- -- O/HERIBERTO Cooney 11/07 Released w/o Limitations [facility] Juan polanco(JOSEFA D Fourth BN BAS) [facility] Charles n[facility] Rec[employer] Medical Process) OUTPATIENT [id number] 2nd visit for inproce SHANON Melgar 12/11 Released w/o Limitations [facility] Juan polanco([facility] D Recruit Medical Process ) [facility] n[facility] [place]) OUTPATIENT [id number] Notes Entered by: Noel JACKSON 03 Jan 2017 1032 ------- ------- ------- ------- -- O/4042- Left Heel Celluli tis ELINOR GONZALEZ 01/03 Released w/o Limitations [facility] Juan polanco([facility] D Crucibl e) [facility] n([facility] Fourth BN BAS) OUTPATIENT [id number] Notes Entered by: HAYLEY YAO 05 Jan 2017 0635 ------- ------- ------- ------- -- O/4042- F/U QUANG Fletcher 01/05 Released w/o Limitations [facility] Juan polanco([facility] D Fourth BN BAS) [facility] n([facility] Fourth BN BAS) OUTPATIENT [id number] Notes Entered by: HAMLET WASHINGTON 06 Jan 2017 0714 ------- ------- ------- ------- -- O/4042 - F/U QUANG Us 01/06 Released w/o Limitations [facility] Juan polanco([facility] D Fourth BN BAS) [facility] n([facility] Fourth BN BAS) OUTPATIENT [id number] O4042 - HERIBERTO Kilgore 01/08 Released w/o Limitations [facility] Juan polanco([facility] D Fourth BN BAS) [facility]) OUTPATIENT [id number] syncopa l episode , was caught before hitting the ground ADE HUMPHREYS 04/22 Released w/o Limitations [facility] Tenant Cmds) [facility](TP [facility] Tenant Cmds) OUTPATIENT [id number] sore throat YAYA VEGA Radha 05/20 Released w/o Limitations [facility]( janet Conserv-F C) OUTPATIENT [id number] Notes Entered by: LIONEL PRATT 01 Oct 2017 0847 ------- ------- ------- ------- -- annual LIONEL PRATT 10/01 Released w/o Limitations [facility]( [facility] Conserv -FC) [facility](CL R 2 JOHN) OUTPATIENT [id number] BRENDEN HORNE 10/20 Released w/o Limitations [facility]( CLR 2 JOHN) [facility](CL R 2 JOHN) OUTPATIENT [id number] Notes Entered by: CHAR GREGORY 03 Nov 2017 1543 ------- ------- ------- ------- -- ANTONIO DEWEY MATTHEW M 11/03 Released w/o Limitations [facility]( CLR 2 JOHN) [facility](CL R 2 JOHN) OUTPATIENT [id number] CALLY PINO 11/04 Released w/o Limitations [facility]( CLR 2 JOHN) [facility]) OUTPATIENT [id number] Notes Entered by: SAIDA HERNANDEZ 09 Jun 2018 0956 ------- ------- ------- ------- -- ARPAN MAGDALENO 06/09 Released w/o Limitations [facility]( [facility]) [facility]( negritong Conserv-B 65) OUTPATIENT [id number] Notes Entered by: INDU DURAN 11 Aug 2018 1209 ------- ------- ------- ------- -- annual INDU DURAN 08/11 Released w/o Limitations [facility]( Hearing Conserv -B65) [facility](CL R 2 JOHN) TELE CONSULT [id number] Notes Entered by: MERCEDEZ BOYD 02 Dec 2018 1414 ------- ------- ------- ------- -- KERRI Sandhu 12/02 [facility]( CLR 2 JOHN) [facility](CL R 2 JOHN) TELE CONSULT [id number] Notes Entered by: MERCEDEZ BOYD 06 Dec 2018 1543 ------- ------- ------- ------- -- KERRI RUFFIN 12/06 [facility]( CLR 2 JOHN) [facility]) TELE CONSULT [id number] Notes Entered by: BELKIS AMOS 09 Dec 2018 0852 ------- ------- ------- ------- -- PROVIDE R NOTIFIC ATION FOR UNTREAT ED STI SHAYNE AMOS 12/09 Other Not Elsewhere Classified [facility]( [facility]) [facility]) TELE CONSULT [id number] Notes Entered by: BELKIS AMOS 13 Dec 2018 1151 ------- ------- ------- ------- -- PROVIDE R NOTIFIC ATION FOR UNTREAT ED STI SHAYNE AMOS 12/13 Other Not Elsewhere Classified [facility]( [facility]) [facility](CL R 2 JOHN) TELE CONSULT [id number] Notes Entered by: JESU WHITTINGTON 14 Dec 2018 1400 ------- ------- ------- ------- -- Lab result notific ation JESU WHITTINGTON 12/14 [facility]( CLR 2 JOHN) [facility]) OUTPATIENT [id number] Notes Entered by: KIM ROMERO 01 Feb 2019 0757 ------- ------- ------- ------- -- clb2//c old symptom s PRETTY ROMERO 02/01 Sick at Home/Quarter s [facility]( [place] [facility] [place]) [facility]) OUTPATIENT [id number] CLB2// LEFT SHOULDE R INJURY JESU WHITTINGTON 03/21 Released w/o Limitations [facility]( [place] [facility] [place]) [facility]( janet [facility]-F C) OUTPATIENT [id number] Notes Entered by: LIONEL PRATT 22 Mar 2019 0836 ------- ------- ------- ------- -- annual LIONEL PRATT 03/22 Released w/o Limitations [facility]( Hearing Conserv -FC) [facility] [place] [facility]) OUTPATIENT [id number] Notes Entered by: ILEANA MARSHALL 24 May 2019 0807 ------- ------- ------- ------- -- wants pills not on any b/c KIRSTEN DORMAN 05/23 Released w/o Limitations [facility]( [facility]) [facility]) OUTPATIENT [id number] Notes Entered by: LAYLA IGLESIAS 30 May 2019 1505 ------- ------- ------- ------- -- typhoid //clb2 JERED OCONNOR 05/29 Released w/o Limitations [facility]( [place] [facility]) [facility]) OUTPATIENT [id number] Notes Entered by: Amarilys BRUNNER 08 Jun 2019 0852 ------- ------- ------- ------- -- CLB2// ABDOMIN AL DLEGADO GALVAN 06/07 Released w/o Limitations [facility]( [place] [facility]) [facility](2n d [facility]) TELE CONSULT [id number] Notes Entered by: LORENZA MILLER PHER 25 Aug 2019 1019 ------- ------- ------- ------- -- FORCE JACQUES CANTU 08/24 [facility]( 2nd [facility]) [facility]([place] VID19 [facility]) TELE CONSULT [id number] Notes Entered by: Chely DENNY 25 Aug 2019 1021 ------- ------- ------- ------- -- BLDGH24 //FLU, COVID TESTING DANNA DENNY 08/24 Advice Assessment [facility]( COVID19 [facility]) [facility]([place] VID19 [facility]) TELE CONSULT [id number] Notes Entered by: Rhea GREEN 07 Sep 2019 0957 ------- ------- ------- ------- -- BLDGH24 //ASYMP TO DANNA DENNY 09/06 Advice Assessment [facility]( COVID19 [facility]) [facility](2n d Mef) TELE CONSULT [id number] Notes Entered by: LORENZA MILLER 07 Sep 2019 1012 ------- ------- ------- ------- -- FORCE DAVIE GERBER 09/06 [facility]( 2nd Mef) [facility] [place] [place]) OUTPATIENT [id number] Notes Entered by: HILARIO MCKOY 25 Feb 2020 1152 ------- ------- ------- ------- -- L Ankle Pain ELIZABETH BETH 02/24 Released w/o Limitations [facility]) [facility] [place]) OUTPATIENT [id number] CLB2// L ANKLE F/U KERRI TURK 06/27 Released with Work/Duty Limitations [facility]( [place] [facility] [place]) [facility]( negrito Conserv-F C) OUTPATIENT [id number] Notes Entered by: LIONEL PRATT 28 Jun 2020 0931 ------- ------- ------- ------- -- annual LIONEL PRATT 06/28 Released w/o Limitations [facility]( [facility] Conserv -) [facility]) OUTPATIENT [id number] PHA// CLB2// [id number] LUISA VAZQUEZ 07/03 Released w/o Limitations [facility]( [place]) [facility]) OUTPATIENT [id number] CLB2// BUMPS ON ELBOWS AND NECK DEBRA ESCOBEDO 07/05 Released w/o Limitations [facility]( [place] [facility] [place]) [facility] OUTPATIENT [id number] CLB2// PAP OLGA WEBB 07/12 Released w/o Limitations [facility]( [place] [facility] [place]) [facility]( [facility]) OUTPATIENT [id number] Pain in left ankle and joints of left foot QUYEN MELO 07/18 Released with Work/Duty Limitations [facility]( Physica l Therapy [facility]) [facility]( [facility]) OUTPATIENT [id number] txx QUYEN MELO 07/26 Released w/o Limitations [facility]( [facility]) [facility]( [facility] Therapy [facility]) OUTPATIENT [id number] re-TAMARA Cueva 08/03 Released with Work/Duty Limitations [facility]( [facility]) [facility]( [facility]ical Therapy [facility]) OUTPATIENT [id number] TAMARA EDWARD 08/08 Released with Work/Duty Limitations [facility]( [facility]) [facility]) TELE CONSULT [id number] Notes Entered by: OLGA CARRENO 09 Aug 2020 1522 ------- ------- ------- ------- -- Results Relay OLGA WEBB 08/09 [facility]( [place] [facility] [place]) [facility]( y[facility]ical Therapy Clinic) OUTPATIENT [id number] TAMARA EDWARD 08/15 Released with Work/Duty Limitations [facility]( Physica [facility] Therapy [facility]) [facility](Ph ysical Therapy Clinic) OUTPATIENT [id number] QUYEN Meza 08/20 Released w/o Limitations [facility]( Physica [facility] Therapy [facility]) [facility] OUTPATIENT [id number] PDHRA CLB2 MICHEL GLASGOW 08/29 Released w/o Limitations [facility]( Deploy ent Health Service s) [id number]-[id number] [facility] Outpatient [id number] HERIBERTO YA 09/28 Discharge Disposition: Home or Self Care 8344R-4 39 [facility] 8344R-439 [facility] Clinic [id number] HERIBERTO YA 04/12 Discharge Disposition: Home or Self Care 8344R-4 39 [facility] 8344R-439 [facility] Clinic [id number] HERIBERTO YA 04/12 Discharge Disposition: Home or Self Care 8344R-4 39 [facility] Procedures Combined list of: 1) Procedures from Department of Veterans Affairs facilities going back up to thelast 18 months, not all VA non-surgical procedures are included; 2) All procedures from the Department of Defense facilities. Procedure Procedure Type Code Date Perfomer Comments [facility] e Threshold Audiogram (Pure Tone) Automated Threshold Audiogram (Pure Tone) Automated 0208T 019 INDU DURAN [facility] Patient education, not otherwise cla ified, non-physician provider, individual, per se ion 019 INDU DURAN [facility] Mental health a e ment, by non-physician 019 ARPAN BETH [facility] Patient education, not otherwise cla ified, non-physician provider, individual, per se ion 018 LIONEL PRATT [facility] Threshold Audiogram (Pure Tone) Automated Threshold Audiogram (Pure Tone) Automated 0208T 018 LIONEL PRATT [facility] Vaccines Vaccines 28386 017 MARY DOMINGUEZ Influenza, injectable, MDCK, preservative free, quadrivalent; Series #: 1; .5 mL; IM; Right Arm; Mfg: Seqirus; Lot: [id number]; VIS given (Donald: 10/13/2014). [facility] Vaccines Viral Polio, Inactivated (Salk) Vaccines Viral Polio, Inactivated (Salk) 85487 017 AIDAN CALLY IVERSON IPV; Series #: 1; .5 mL; IM; Right Thigh; Mfg: Sanofi Pasteur; Lot: [id number]. [facility] Immunization Administration One Vaccine Immunization Administration One Vaccine 15665 017 AIDAN CALLY IVERSON DoD Skin Test Anergy Tuberculin Intradermal Skin Test Anergy Tuberculin Intradermal 22021 [facility] [place] Administration One Vaccine Immunization Administration One Vaccine 04818 017 [facility] [place] [facility] Immunization Administration Each Additional Vaccine Immunization Administration Each Additional Vaccine 64117 017 [facility] [place] [facility] Immunization Admin Intranasal / Oral Each Additional Vaccine Immunization Admin Intranasal / Oral Each Additional Vacc[place] [id number] 017 [facility] [place] Adenovirus Type 4 Live, For Oral Use Vaccines Adenovirus Type 4 Live, For Oral Use [id number] 017 [facility] [place] Adenovirus Type 7 Live, For Oral Use Vaccines Adenovirus Type 7 Live, For Oral Use [id number] 017 [facility] [place]dap Vaccine Tdap Vaccine 19958 017 [facility] [place] 18830 [facility] [place] Scre[place] Test Of Visual Acuity, Quantitative, Bilateral Screening Test Of Visual Acuity, Quantitative, Bilateral 30412 SUSANNA WIN [facility] Audiometry Group Testing Audiometry Group Testing [address]Supervised [facility] Educational Services -Supervised Group Educational Services 49552 JERED OLSEN Threshold Audiogram (Pure Tone) Automated Threshold Audiogram (Pure Tone) Automated 0208T LIONEL PRATT [facility] Patient education, not otherwise cla ified, non-physician provider, individual, per se LIONEL Salamanca [facility] Immunization Administration One Vaccine Immunization Administration One Vaccine 70595 JERED OCONNOR WIMiles [facility] Typhoid Vaccine Vi Capsular Polysaccharide, For Intramus Use Typhoid Vaccine Vi Capsular Polysaccharide, For Intramus Use 89705 JERED OCONNOR WIMiles [facility] Patient education, not otherwise cla ified, non-physician provider, group, per se LIONEL Salamanca [facility] Cervical Pap Smear Cervical Pap Smear 56724 OLGA WEBB [facility] Physical Therapy: ___ Se ion Segments, 15 Minutes Each Physical Therapy: ___ Session Segments, 15 Minutes Each [id number] QUYEN MELO [facility] Physical Therapy Neuromuscular Re-education Physical Therapy Neuromuscular Re-education 21966 QUYEN MELO [facility] Mobilization Soft Ti ue Mobilization Soft Tissue 85805 TAMARA EDWARD [facility] Physical Medicine Physical Therapy Re-Evaluation Physical Medicine Physical Therapy Re-Evaluation 65089 QUYEN MELO [facility] Ankle orthosis, ankle gauntlet or similar, with or without joints, prefabricated, [id number] MELOQUYEN VALENCIA [facility] Brief communication technology-based service, e.g. virtual check-in, by a physician or other qualified health care profsophy carson who can report evaluation and management services, provided to an established patient, not originating from a related E/M service provided within the previous 7 days nor leading to an E/M service or procedure within the next 24 hours or soonest available appointment; 5-10 minutes of medical discu MICHEL Anderson [facility] X-Ray Ankle Complete - Three Or More Views [See R,L] X-Ray Ankle Complete - Three Or More Views [See R,L] 45412 ELIZABETH BETH [facility] INFLUENZA VIRUS VACCINE, QUADRIVALENT (CCIIV4), DERIVED FROM CELL CULTURES, SUBUNIT, PRESERVATIVE AND ANTIBIOTIC FREE, 0.5 ML DOSAGE, FOR INTRAMUSCULAR USE [facility] IMMUNIZATION ADMINISTRATION (INCLUDES PERCUTANEOUS, INTRADERMAL, SUBCUTANEOUS, OR INTRAMUSCULAR INJECTIONS); 1 VACCINE (SINGLE OR COMBINATION VACCINE/TOXOID) [facility] SKIN TEST; TUBERCULOSIS, INTRADERMAL [facility] PHYS/OTH QUALIFIED HEALTH JEWELRY SALESPERSON QUALIFIED,EDUCATI ON,TRAIN,LICENSUR E/REGULATION (WHEN APPLICABLE) EDUC SER RENDERED TO PATS IN A GRP SETTING (EG,,OBES ITY,OR DIABETIC INSTRUCT) [facility] SCREENING TEST OF VISUAL ACUITY, QUANTITATIVE, BILATERAL [facility] ADMINISTRATION OF PATIENT-FOCUSED HEALTH RISK ASSESSMENT INSTRUMENT (EG, HEALTH HAZARD APPRAISAL) WITH SCORING AND DOCUMENTATION, PER STANDARDIZED INSTRUMENT [facility] ANKLE ORTHOSIS, ANKLE GAUNTLET OR SIMILAR, WITH OR WITHOUT JOINTS, PREFABRICATED, [id number] [facility] THERAPEUTIC PROCEDURE,1 OR MORE AREAS,EACH 15 MINUTES;NEUROMUSC ULAR REEDUCATION OF MOVEMENT,BALANCE, COORDINATION,KINE STHETIC SENSE,POSTURE,AND /OR PROPRIOCEPTION FOR SITTING AND/OR STANDING ACTIVITIES [facility] MANUAL THERAPY TECHNIQUES (EG, MOBILIZATION/ MANIPULATION, MANUAL LYMPHATIC DRAINAGE, MANUAL TRACTION), 1 OR MORE REGIONS, EACH 15 MINUTES [facility] THERAPEUTIC PROCEDURE,1 OR MORE AREAS,EACH 15 MINUTES;NEUROMUSC ULAR REEDUCATION OF MOVEMENT,BALANCE, COORDINATION,KINE STHETIC SENSE,POSTURE,AND /OR PROPRIOCEPTION FOR SITTING AND/OR STANDING ACTIVITIES [facility] THERAPEUTIC PROCEDURE,1 OR MORE AREAS,EACH 15 MINUTES;NEUROMUSC ULAR REEDUCATION OF MOVEMENT,BALANCE, COORDINATION,KINE STHETIC SENSE,POSTURE,AND /OR PROPRIOCEPTION FOR SITTING AND/OR STANDING ACTIVITIES [facility] THERAPEUTIC PROCEDURE, 1 OR MORE AREAS, EACH 15 MINUTES; THERAPEUTIC EXERCISES TO DEVELOP STRENGTH AND ENDURANCE, RANGE OF MOTION AND FLEXIBILITY [facility] CYTOPATHOLOGY, SMEARS, CERVICAL OR VAGINAL, UP TO THREE SMEARS; SCREENING BY INFORMATION MANAGEMENT SPECIALIST UNDER PHYSICIAN SUPERVISION [facility] PATIENT EDUCATION, NOT OTHERWISE CLASSIFIED, NON-PHYSICIAN PROVIDER, GROUP, PER SESSION [facility] TYPHOID VACCINE, CAPSULAR POLYSACCHARIDE (VICPS), FOR INTRAMUSCULAR USE [facility] PATIENT EDUCATION, NOT OTHERWISE CLASSIFIED, NON-PHYSICIAN PROVIDER, INDIVIDUAL, PER SESSION [facility] PATIENT EDUCATION, NOT OTHERWISE CLASSIFIED, NON-PHYSICIAN PROVIDER, INDIVIDUAL, PER SESSION [facility] ADMINISTRATION OF PATIENT-FOCUSED HEALTH RISK ASSESSMENT INSTRUMENT (EG, HEALTH HAZARD APPRAISAL) WITH SCORING AND DOCUMENTATION, PER STANDARDIZED INSTRUMENT [facility] PATIENT EDUCATION, NOT OTHERWISE CLASSIFIED, NON-PHYSICIAN PROVIDER, INDIVIDUAL, PER SESSION [facility] RADIOLOGIC EXAMINATION, ANKLE; COMPLETE, MINIMUM OF 3 VIEWS [facility] No data available for this section Ambul[facility] Pharmacy Social History Combined list of available smoking, tobacco, and other social history from [facility] facilities. Social History Type Response Date Comment Sourc e Sex Representation Female (finding) 11/24/2019 Unknown Organization This section is an empty social history section. [facility] Sexual Orientation Ambula tory Pharmacy Gender identity Ambulator y Pharmacy Assessment and Plan Combined list of future care activities from [facility] Defense and [facility] facilities (e.g., assessment and plan notes, appointments, orders, and referrals). Additional future care activities may be listed in the Plan of Care section. 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 The medical records were available and reviewed along with patients reported history on DD Form 2807-1. This initial review is based on patients reported and documented medical history. A physical exam and DD Form 2808 were not completed.? ? 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 Patient with history of ankle injury which may?be challenging for? 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 SM will need a waiver if desires DI duty. ? Sih Serna LT, MD 07/01/[address] [place] [address] Functional Status Combined list of recent functional and cognitive assessments recorded at [facility] ([place] Functional Mchenry Measurement (FIM) Scale: 1 = Total Assistance (Subject = 0% +), 2 = Maximal Assistance (Subject = 25% +), 3 = Moderate Assistance (Subject = 50% +), 4 = Minimal Assistance (Subject = 75% +), 5 = Supervision, 6 = Modified Mchenry (Device), 7 = Complete Mchenry (Timely, Safely). Assessment Date/Time Source Assessment Type Assessment Skill Assessment Score Assessment Details No data available for this section
[2024-07-01 10:01] LABS: MANUAL DIFF FLAG NO
[2024-07-01 10:13] LABS: Basophils Percent Auto 0.5 % (0-2); Eosinophils Absolute Auto 0.2 X10*3/uL (0.0-0.4); Eosinophils Percent Auto 2.8 % (0-4); Hematocrit 39.6 % (37.0-47.0); Hemoglobin 13.4 g/dl (12.0-16.0); Imm Gran Abs Auto 0.01 X10*3/uL (0.00-0.03); Imm Gran Pct Auto 0.2 % (0.0-0.4); Lymphocytes Absolute Auto 2.5 X10*3/uL (1.2-4.9); Lymphocytes Percent Auto 43.8 % (20-40); Mean Corpuscular HGB Conc 33.8 g/dl (31.0-35.0); Mean Corpuscular Hemoglobin 30.5 pg (27.0-33.0); Monocytes Absolute Auto 0.5 X10*3/uL (0.1-1.2); Neutrophils Absolute Auto 2.5 x10*3/uL (2.0-8.3); Neutrophils Percent Auto 44.7 % (45-73); Platelet Count 190 X10*3/uL (160-400); Red Cell Distribution Width 14.1 % (11.0-16.0); White Blood Count 5.6 X10*3/uL (4.8-10.8)
[2024-07-01 10:42] LABS: Alanine Aminotransferase 12 U/L (0-31); Albumin Level 3.8 g/dL (3.5-5.0); Alkaline Phosphatase 57 U/L (39-117); Anion Gap 8 (12-20); Aspartate Amino Transferase 23 U/L (5-31); Bilirubin Total 0.9 mg/dL (0.0-1.0); Blood Urea Nitrogen 11 mg/dL (9-16); Calcium 9.2 mg/dL (8.4-10.2); Carbon Dioxide 26 mmol/L (22-29); Chloride 108 mmol/L (96-108); Cholesterol 202 mg/dL (<200); Estimated Glomerular Filt Rate > 60; Glucose Fasting 88 mg/dL (60-99); HDL Cholesterol 69 mg/dL (>40); LDL Cholesterol Calculated 121 mg/dL (<100); Potassium 3.9 mmol/L (3.3-5.1); Sodium 138 mmol/L (135-145); TSH reflex Free T4 2.23 uIU/mL (0.32-4.0); Triglycerides 63 mg/dL (<150)
[2024-07-01 10:54] LABS: Appearance Urine Clear; Color Urine Yellow; Glucose Urine UA Negative (Negative); Leukocyte Esterase Urine Negative (Negative); Nitrite Urine Negative (Negative); PH 6.5 (5.0-9.0); Urine Blood Negative (Negative); Urine Ketones Negative (Negative); Urine Protein Negative (Neg-Trace)
== END 2024-07-01 08:01 | disposition home or self-care (01) ==
LOC: HO.HMGCLDS 08:00
PROVIDERS: PCP Nurse Practitioner Family; Visit Provider Nurse Practitioner Family
DX: Z00.00 Encounter for general adult medical examination without abnormal findings (principal)
CPT/HCPCS: 36415; 80053; 80061; 81003; 84443; 85025

== ENCOUNTER 2024-09-05 10:44 | Outpatient (AMB) | payer OTHER, SELFPAY ==
--- NOTE | 2024-09-05 10:49 | A.OFFPC_ITS ---
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 Required: No Allergies Penicillins Allergy (Verified 09/05/24 11:27) Rash Medication List - Last Reconciled 09/05/24 by EDUARDO PierreP- norelgestromin-ethin.estradiol 150-35 mcg/24 hr (Xulane) 1 patch transdermal Q7D 3 weeks Tobacco use date assessed: 09/05/24 Dental Screening Dental Screen Date: 09/05/24 Did you have a dental visit in the last 12 months?: Yes Did you have a dental problem in the last 6 months where you did not have access to dental care?: No Was dental information given to patient?: Patient has dentist HPI transition due to move last [facility] HPI Details History of Present Illness The patient is a 24-year-old female presenting for a physical examination. She is preparing to move to [facility] due to orders. She denies experiencing any chest pain, dyspnea, abdominal pain, hematochezia, con stipation, diarrhea, or any suicidal or homicidal ideations. The patient reports doing well overall and has a gynecological provider for her women's health needs. Health Maintenance Social History - Employment: Moving to [facility] due to orders Review of Systems - Cardiovascular: Denies chest pain - Respiratory: Denies dyspnea - Gastrointestinal: Denies abdominal gillian n, hematochezia, constipation, diarrhea - Psychiatric: Denies suicidal ideation, homicidal ideation Physical Exam General: Cooperative, healthy appearing, comfortable, no acute distress and well developed Orientation: Patient oriented x3 Limitations: No limitations Head: Normal to inspection Ears: Hearing grossly normal bilaterally Nose: Normal external nose present Face and sinus: Normal facial exam Eyes: Appearance normal, both eyes and all related structures Neck: Normal visual inspection and Yes full ROM Respiratory: Normal respiratory effort and able to speak in complete sentences. Clear to auscultation bilaterally Cardiovascular: Regular rate and rhythm. Normal S1 and S2 GI: Normal to inspection. Soft to palpation and nontender Skin: No rashes or lesions noted Neuro: Patient oriented x3 Extremities: Normal to inspection Results Plan The patient will undergo laboratory tests in the near future as part of her routine health maintenance. 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 1. Little interest or pleasure in doing things: not at all 2. Feeling down, depressed, or hopeless: not at all 3. Trouble falling or staying asleep, or sleeping too much: several days 4. Feeling tired or having little energy: not at all 5. Poor appetite or overeating: not at all 6. Feeling bad about yourself - or that you are a failure or have let yourself or your family down: not at all 7. Trouble concentrating on things, such as reading the newspaper or watching television: not at all 8. Moving or speaking so slowly that other people could have noticed. Or the opposite - being so fidgety or restless that you have been moving around a lot more than usual: not at all 9. Thoughts that you would be better off or of hurting yourself in some way: not at all Total score: 1 Depression Screening Interpretation: Negative Depression Screening Done: Yes 07076 - PHQ-9 Billing: Yes Source: Developed by Drs. Juanito Jauregui, Yaneth Triana, Bala Duong and colleagues, with an educational baljit from [employer]. Thrive Questionnaire Date Thrive assessed: 09/05/24 I am a: Patient What is your living situation today?: I have a steady place to live Within the past 12 months, did the food you bought not last and you didn't have the money to get more?: Never true Within the past 12 months, did you worry whether your food would run out before you got money to buy more?: Never true Do you have trouble paying for medicines?: No Do you have trouble getting transportation to medical appointments?: No Do you have trouble paying your heating and electricity bill?: No Do you have trouble taking care of your child, family member or friend?: No Do you have trouble with day-to-day activities such as bathing, preparing meals, shopping, managing finances, etc.?: No Are you currently unemployed and looking for a job?: No Are you interested in more education?: No Please select the resources that you would like help with: None Currently or been in a relationship where the following occur: No concerns reported THRIVE Score: 0 AUDIT C Alcohol Use Questionnaire (AUDIT-C) 1. How often do you have a drink containing alcohol?: Monthly or less 2. How many drinks containing alcohol do you have on a typical day when you are drinking?: 1 or 2 3. How often do you have six or more drinks on one occasion?: Never Total Score: 1 Score Reviewed/Action Taken: Yes DAGOBERTO-7 AMB Questionnaire DAGOBERTO-7 Date DAGOBERTO - 7 assessed: 09/05/24 Feeling nervous, anxious, or on edge: 1 = Several days Not being able to stop or control worryin = Not at all Worrying too much about different things: 1 = Several days Trouble relaxin = Several days Being so restless that it is hard to sit still: 0 = Not at all Becoming easily annoyed or irritable: 0 = Not at all Feeling afraid as if something awful might happen: 0 = Not at all Total DAGOBERTO-7 score (0-4 normal; 5-9 mild; 10-14 moderate; 15-21 severe): 3 Source: Developed by Drs. Juanito Jauregui, Yaneth Triana, Bala Duong and colleagues, with an educational baljti from [employer]. DAGOBERTO-7 Assessment Billing DAGOBERTO-7 Assessment Tool: DAGOBERTO-7 Assessment 29581 Physical exam (Primary Care) Vital Signs: Last Vital Signs Temp 97.9 F 09/05/24 10:56 Pulse 77 09/05/24 10:56 BP 102/66 09/05/24 10:56 Pulse Ox 98 09/05/24 10:56 Oxygen Delivery Method Room Air 09/05/24 10:56 BMI result Body Mass Index 24.7 Tobacco/Smoking Status: Tobacco use Status Tobacco use date assessed 09/05/24 09/05/24 11:02 Patient Tobacco Use Status Never used Tobacco 09/05/24 11:02 e-Cigarette/Vaping Use Never Used 09/05/24 11:02 PHQ-9: PHQ-9 Score PHQ-9: Total score 1 09/05/24 11:02 Depression Screening Interpretation: Negative Thrive Assessment: Date of Thrive Assessment Date Thrive assessed 09/05/24 09/05/24 11:02 Currently or been in a relationship where the following occur: No concerns reported Coding Level of Care Code Est Pt Prev Care 18-39y(05928) Diagnoses Physical exam Z00. Additional Codes DAGOBERTO-7 Assessment Billing - DAGOBERTO-7 Assessment Tool: DAGOBERTO-7 Assessment 48660 ([id number]) PHQ-9 - 93123 - PHQ-9 Billing: Yes ([id number]) Assessment & Plan Assessment & Plan (1) Physical exam: Code(s): Z00.00 - Encounter for general adult medical examination without abnormal findings Category: Medical Plan . Orders: Orders Complete Blood Count Auto Diff Today Z00.00 - Encounter for general adult medical examination without abnormal findings Comprehensive [place]. Panel Fast Today Z00.00 - Encounter for general adult medical examination without abnormal findings TSH reflex Free T4 Today Z00.00 - Encounter for general adult medical examination without abnormal findings UA CC w/rflx Micro + Cult Today Z00.00 - Encounter for general adult medical examination without abnormal findings Lipid Panel Today Z00.00 - Encounter for general adult medical examination without abnormal findings
[2024-09-05 10:56] VITALS: BP 102/66; PULSE 77; TEMP 36.6; O2SAT 98; BMI 24.7
== END 2024-09-05 12:46 | disposition home or self-care (01) ==
LOC: HO.HMCC 10:45
PROVIDERS: PCP Nurse Practitioner Family; Visit Provider Nurse Practitioner Family
DX: Z00.00 Encounter for general adult medical examination without abnormal findings (principal)

== ENCOUNTER → 2024-09-05 10:44 | Outpatient (BNVA) | payer OTHER, SELFPAY | PROVIDERS: PCP Nurse Practitioner Family; Visit Provider Nurse Practitioner Family | DX: Z00.00 Encounter for general adult medical examination without abnormal findings (principal) | CPT/HCPCS: 96127 ==

== ENCOUNTER 2024-09-20 07:12 | Outpatient (REF) | payer OTHER, SELFPAY ==
[2024-09-20 10:19] LABS: MANUAL DIFF FLAG NO
[2024-09-20 10:21] LABS: Appearance Urine Clear; Glucose Urine UA Negative (Negative); PH 7.0 (5.0-9.0); Specific Gravity - Urine 1.025 (1.005-1.025)
[2024-09-20 10:38] LABS: Hematocrit 37.9 % (37.0-47.0); Hemoglobin 12.7 g/dl (12.0-16.0); Imm Gran Abs Auto 0.03 X10*3/uL (0.00-0.03); Imm Gran Pct Auto 0.4 % (0.0-0.4); Lymphocytes Absolute Auto 2.5 X10*3/uL (1.2-4.9); Mean Corpuscular HGB Conc 33.5 g/dl (31.0-35.0); Mean Corpuscular Hemoglobin 30.2 pg (27.0-33.0); Mean Corpuscular Volume 90.2 fL (80.0-98.0); NRBC Abs Auto 0.000 X10*3/uL (0.0-0.012); NRBC Pct Auto 0.0 /100WBC (0.0-0.2); Platelet Count 196 X10*3/uL (160-400); Red Blood Count 4.20 X10*6/uL (4.20-5.50); White Blood Count 7.6 X10*3/uL (4.8-10.8)
[2024-09-20 10:55] LABS: Alanine Aminotransferase 13 U/L (0-31); Albumin Level 3.8 g/dL (3.5-5.0); Alkaline Phosphatase 63 U/L (39-117); Anion Gap 11 (12-20); Aspartate Amino Transferase 24 U/L (5-31); Blood Urea Nitrogen 12 mg/dL (9-16); Calcium 9.0 mg/dL (8.4-10.2); Carbon Dioxide 25 mmol/L (22-29); Chloride 107 mmol/L (96-108); Cholesterol 192 mg/dL (<200); Estimated Glomerular Filt Rate > 60; HDL Cholesterol 69 mg/dL (>40); Potassium 4.0 mmol/L (3.3-5.1); Sodium 139 mmol/L (135-145); Total Protein 6.8 g/dL (6.5-8.0); Triglycerides 55 mg/dL (<150)
== END 2024-09-20 07:13 | disposition home or self-care (01) ==
LOC: HO.HMGCLDS 07:12
PROVIDERS: PCP Nurse Practitioner Family; Visit Provider Nurse Practitioner Family
DX: Z00.00 Encounter for general adult medical examination without abnormal findings (principal)
CPT/HCPCS: 36415; 80053; 80061; 81003; 84443; 85025